=== PATIENT | female | born 1980 | race Caucasian/White ===

== ENCOUNTER → 2018-01-11 | Outpatient (CLI) | payer OTHER ==
[~2018-01-11] MED LIST: ACET325 PO; AMIT25 PO; CALCA400CH PO; Fish Oil 10001000 MG PO; GLUC500 PO; HYDR1TAB94 PO; IBUP400 PO; IBUP800 PO; OXYACE5T PO; POTASSIUM; Tylenol325 MG PO; Verotin-Gr Cap1 EACH PO; ZINC15 PO
== END | disposition home or self-care (01) ==
LOC: LAB 12:58 → LAB SHORT 12:58
PROVIDERS: Obstetrics & Gynecology
DX: Z01.419 Encounter for gynecological examination (general) (routine) without abnormal findings (principal)
CPT/HCPCS: 87624; G0123

== ENCOUNTER 2020-08-03 15:51 | Emergency (ER) | payer OTHER ==
[~2020-08-03] VITALS: Ht 170.2 cm; Wt 81.7 kg
[2020-08-03] MEDS ORDERED: LIDO700A20 TOP (20:08)
[2020-08-03] MEDS ORDERED: CYCL10 PO (20:08)
[2020-08-03] MEDS ORDERED: DEXA4 PO (20:08)
[2020-08-03] MEDS ORDERED: IBUP600 PO (20:08)
[2020-12-11] MEDS ORDERED: Percocet 5-3251 EACH PO (13:28)
== END 2020-08-03 20:45 | disposition home or self-care (01) ==
LOC: ER 15:51
DX: M54.13 Radiculopathy, cervicothoracic region (principal); G89.29 Other chronic pain; Z79.899 Other long term (current) drug therapy; Z88.2 Allergy status to sulfonamides; Z87.891 Personal history of nicotine dependence
CPT/HCPCS: 72040; 73030; 99283-25; A9270; J1100; J1885

== ENCOUNTER 2020-08-05 14:02 | Emergency (ER) | payer OTHER ==
[~2020-08-05] VITALS: Ht 170.2 cm; Wt 81.7 kg
[~2020-08-05 14:02] MED LIST changes: +CYCL10 PO; +DEXA4 PO; +IBUP600 PO; +LIDO700A20 TOP
[2020-08-05] MEDS ORDERED: OXYACE7.5T PO (16:37)
[2020-08-05] MEDS ORDERED: IBUP800 PO (16:37)
[2020-08-05] MEDS ORDERED: Robaxin-750750 MG PO (16:37)
[2020-12-11] MEDS ORDERED: Percocet 5-3251 EACH PO (13:28)
== END 2020-08-05 16:52 | disposition home or self-care (01) ==
LOC: ER 14:02
DX: M54.12 Radiculopathy, cervical region (principal); Z87.891 Personal history of nicotine dependence; Z79.899 Other long term (current) drug therapy; Z88.2 Allergy status to sulfonamides
CPT/HCPCS: 96372-59; 96374; 99283-25; A9270; J1170; J1885

== ENCOUNTER 2020-08-09 19:27 | Observation (INO) | payer OTHER ==
[~2020-08-09] VITALS: Ht 170.2 cm; Wt 83.4 kg
[~2020-08-09 19:27] MED LIST changes: +OXYACE7.5T PO; +Robaxin-750750 MG PO
[2020-08-09 20:02] LABS: BASOPHILS ABSOLUTE AUTO 0.04 K/mm3 (0.00-0.23); BASOPHILS PERCENT AUTO 0 % (0-2); EOSINOPHILS PERCENT AUTO 0 % (0-6); Hematocrit 43.8 % (33.0-51.0); Hemoglobin 15.9 g/dL (11.5-16.0); IMMATURE GRAN PERCENT AUTO 1 % (0-1); LYMPHOCYTES ABSOLUTE AUTO 1.32 K/mm3 (0.84-5.20); LYMPHOCYTES PERCENT AUTO 8 % (21-46); MONOCYTES ABSOLUTE AUTO 0.32 K/mm3 (0.16-1.47); MONOCYTES PERCENT AUTO 2 % (4-13); Mean Corpuscular HGB 34.1 pg (26.0-34.0); Mean Corpuscular HGB Conc 36.3 g/dL (31.5-36.5); Mean Corpuscular Volume 94 fL (80-100); Mean Platelet Volume 10.8 fL (9.1-12.4); NEUTROPHILS ABSOLUTE AUTO 13.86 K/mm3 (1.96-9.15); NEUTROPHILS PERCENT AUTO 88 % (41-73); Platelet Count 257 K/mm3 (150-400); RDW Coefficient Variation 12.1 % (11.7-14.2); RDW Standard Deviation 41.3 fL (35.1-46.3); Red Blood Cell Count 4.66 M/mm3 (3.80-5.20); White Blood Cell Count 15.74 K/mm3 (4.00-11.30)
[2020-08-09] MEDS ORDERED: PREG75 PO (20:07)
[2020-08-09] MEDS ORDERED: DEXA6 PO (20:08)
[2020-08-09 20:20] LABS: Alanine Aminotransfer (ALT/SGP 47 U/L (12-78); Albumin, Blood 4.3 g/dL (3.4-5.0); Alk Phos 70 U/L (50-136); Anion Gap 9 mmol/L (6-16); Aspartate Aminotrans (AST/SGOT 22 U/L (12-37); Bilirubin, Total 0.8 mg/dL (0.1-1.0); Blood Urea Nitrogen 13 mg/dL (8-24); Bun/Creatinine Ratio 20.1 (12.0-20.0); CO2, Blood 21 mmol/L (21-32); Calcium, Blood 9.6 mg/dL (8.5-10.1); Chloride, Blood 104 mmol/L (98-108); Creatinine, Blood 0.65 mg/dL (0.40-1.00); Globulin, Blood 4.1 g/dL (2.2-4.0); Glomerular Filtration Rate >60 (60-); Glucose, Blood 150 mg/dL (70-99); Potassium, Blood 3.7 mmol/L (3.5-5.5); Sodium, Blood 134 mmol/L (136-145); Total Protein, Blood 8.4 g/dL (6.4-8.2); Troponin I <0.015 ng/mL (0.000-0.040)
[2020-08-10] MEDS ORDERED: LIDO700A20 TOP (16:28)
--- NOTE | 2020-08-10 19:00 | NUR ---
SHIFT SUMMARY PT ARRIVED AT 1450, GOT PRN IV AND PO PAIN MEDICATIONS. INDEP IN ROOM. OFF TO MRI. CONTINENT IN BR, MOTHER AT BEDSIDE. HEAT AND ICE PACKS IN ROOM AVAILABLE FOR PT CALL LIGHT IN REACH, REPORT GIVEN TO NIGHT NURSE
--- NOTE | 2020-08-10 20:16 | NUR ---
CALL TO HOSPITALIST / LYRICA FREQUENCY INCREASED LYRICA SCHEDULED FOR ONCE DAILY. PT STATES SHE TAKES THIS BID. SPOKE W/ DR. KNUTSON AND INCREASED FREQUENCY TO BID.
--- NOTE | 2020-08-11 05:56 | NUR ---
SHIFT SUMMARY: BP ELEVATED AT HS- IMPROVED THIS AM. AFEB. AAOX4. PT STATES SHE WAS ABLE TO SLEEP WELL TONIGHT. USING HEAT FOR PAIN MANAGEMENT IN ADDITION TO PRN DILAUDID, PERCOCET, AND ROBAXIN. PT STATES PAIN IS PRESENT BUT TOLERABLE. L WEAVER HAND WEAK DUE TO INCREASED PAIN W/ ATTEMPT TO SQUEEZE. INTERMITTENT L HAND NUMBNESS. ALL MOVEMENTS ARE SLOW AND PT KEEPS NECK AND SHOULDER IMMOBILE SHE CAN TO AVOID PAIN. NO ACUTE CHANGES OVERNIGHT.
[2020-08-11] MEDS ORDERED: IBUP600 PO (11:42)
[2020-08-11] MEDS ORDERED: Robaxin750 MG PO (11:43)
[2020-08-11] MEDS ORDERED: PERCOCET 10-321 EAC5 PO (11:44)
[2020-08-11] MEDS ORDERED: MIRALAX17 GM PO (11:44)
[2020-08-11] MEDS ORDERED: ONDA4ODT MM (11:45)
--- NOTE | 2020-08-11 14:29 | NUR ---
DISCHARGE SUMMARY PT A/O X4 AND IND IN THE ROOM. PT RECEIVING PAIN MANAGEMENT INTERVENTIONS FOR BULGING DISKS IN THE BACK AND NECK. PT SEVERE NECK AND SHOULDER PAIN AND IS GOING TO FOLLOW UP OUTPATIENT FOR THIS. MEDICATED FOR PAIN X2 THIS SHIFT. PT REPORTED NECK PRESSURE/SPASM WHEN RECEIVING DILAUDID. GIVEN A HARD SCRIPT FOR PERCOCET. IV DC WNL. PT DRIVEN MAURILIO BY HER MOTHER. PERSONAL MEDICATIONS RETURNED TO PATIENT.
[2020-12-11] MEDS ORDERED: Percocet 5-3251 EACH PO (13:28)
== END 2020-08-11 13:48 | disposition home or self-care (01) ==
LOC: ER 19:27 → ERHOLD 23:55 → MEDS 08-10 14:50
PROVIDERS: Emergency Medicine; ADMIT Internal Medicine
DX: M50.122 Cervical disc disorder at C5-C6 level with radiculopathy (principal); M25.78 Osteophyte, vertebrae; M47.23 Other spondylosis with radiculopathy, cervicothoracic region; R00.0 Tachycardia, unspecified; Z87.891 Personal history of nicotine dependence; Z88.2 Allergy status to sulfonamides
CPT/HCPCS: 36415; 72141; 80053; 84484; 85025; 93005; 93010; 96374; 96375; 96376; 99285-25; A9270; G0008; G0378; J1170; J1885; J2405; Q2038

== ENCOUNTER 2020-10-01 08:38 | Day surgery (SDC) | payer OTHER ==
[~2020-10-01] VITALS: Ht 170.2 cm; Wt 81.8 kg
[~2020-10-01 08:38] MED LIST changes: +DEXA6 PO; +MIRALAX17 GM PO; +ONDA4ODT MM; +PERCOCET 10-321 EAC5 PO; +PREG75 PO; +Robaxin750 MG PO
--- NOTE | 2020-10-01 09:37 | NUR ---
Ambulatory in Day Surgery History, Chart, Medications and Allergies reviewed before start of procedure. Lungs clear T/O to Auscultation. Patient confirms NPO status and agrees with scheduled surgery. Pre-Op teaching done. Pt verbalizes understanding. Patient States Post-Procedure ride home has been arranged.
--- NOTE | 2020-10-01 19:27 | NUR ---
assisted pt to use bedpan stated pain is better repositioned in bed additional blankets placed pt shivering pt having some difficulty swallowing cl has easier time with ice chips
--- NOTE | 2020-10-02 05:59 | NUR ---
SHIFT SUMMARY LYING IN HIGH FOWLERS WITH EYES CLOSED. NO SIGNIFICANT CHANGES NOTED THIS SHIFT. PT AMBULATED TO BATHROOM WITH 1 PERSON ASSIST USING FWW/GB SEVERAL TIMES THIS SHIFT. SAT UP IN CHAIR AND GOT BACK IN BED. C-COLLAR IN PLACE. THROAT PAIN MANAGED WITH CEPACOL LOZENGES AND PRN PAIN MEDS. NO FURTHER SWALLOWING ISSUES REPORTED AFTER USING LOZENGES. SCD'S IN PLACE. DENIES PAIN, DISCOMFORT, OR FURTHER NEEDS AT THIS TIME. SAFETY MEASURES IN PLACE. WILL CONTINUE TO MONITOR AND GIVE HAND OFF TO ONCOMING SHIFT USING SBAR DURING BEDSIDE REPORT.
--- NOTE | 2020-10-02 16:58 | NUR ---
DISCHARGE PT PROVIDED WITH WRITTEN AND VERBAL DISCHARGE INSTRUCTION, SHE REPORTED UNDERSTANDING. PT CLEARED THERAPY AND VSS PRIOR TO DISCHARGE. PT ESCORTED OUT AT 1640 BY MEGHAN PUENTE. PAIN MANAGED AT TIME OF DISCHARGE.
[2020-12-11] MEDS ORDERED: Percocet 5-3251 EACH PO (13:28)
== END 2020-10-02 16:42 | disposition home or self-care (01) ==
LOC: ORSCMMR 08:38 → SURS 08:38 → ORSCMMR 10-02 16:42
PROVIDERS: Orthopaedic Surgery
PROC: 0RB30ZZ Excision of Cervical Vertebral Disc, Open Approach (ICD-10-PCS; principal; 2020-10-01 10:00)
PROC: 0RG10K0 Fusion of Cervical Vertebral Joint with Nonautologous Tissue Substitute, Anterior Approach, Anterior Column, Open Approach (ICD-10-PCS; principal; 2020-10-01 10:00)
DX: M48.02 Spinal stenosis, cervical region (principal); M54.12 Radiculopathy, cervical region; J45.909 Unspecified asthma, uncomplicated; Z87.891 Personal history of nicotine dependence; Z79.899 Other long term (current) drug therapy
CPT/HCPCS: 88304; 97116; 97162; 97165; 97530; 97535; A9270; C1713; J0171; J0330; J0690; J1100; J1170; J2250; J2405; J2704; J2765; J3010; J3370; J7120

== ENCOUNTER 2020-12-18 11:04 | Day surgery (SDC) | payer OTHER ==
[~2020-12-18] VITALS: Ht 170.2 cm; Wt 77.3 kg
[~2020-12-18 11:04] MED LIST changes: +Percocet 5-3251 EACH PO
[2020-12-18] MEDS ORDERED: TOCO1000 PO (11:33)
[2020-12-18] MEDS ORDERED: THERA-D2000 UNIT PO (11:33)
[2020-12-18] MEDS ORDERED: NAPR220 PO (11:34)
[2020-12-18] MEDS ORDERED: IBUP800 PO (11:34)
--- NOTE | 2020-12-18 12:32 | NUR ---
12/18/20 1232 Daisy Garrido EPI 0.15MG MIXED INTO BUPIVACAINE 0.5% 30ML TO CONSTITUTE BUPIVACAINE 0.5% W/EPI 1:200,000
--- NOTE | 2020-12-18 14:28 | NUR ---
12/18/20 1428 BRANDON PRATER PROVIDED MADONA AND PAD
== END 2020-12-18 14:12 | disposition home or self-care (01) ==
LOC: ORSCSDS 11:04
PROVIDERS: Obstetrics & Gynecology
PROC: 0UT74ZZ Resection of Bilateral Fallopian Tubes, Percutaneous Endoscopic Approach (ICD-10-PCS; principal; 2020-12-18 12:00)
PROC: 0UPD7HZ Removal of Contraceptive Device from Uterus and Cervix, Via Natural or Artificial Opening (ICD-10-PCS; principal; 2020-12-18 12:00)
DX: Z30.2 Encounter for sterilization (principal); Z30.432 Encounter for removal of intrauterine contraceptive device; Z87.891 Personal history of nicotine dependence
CPT/HCPCS: 88302; A9270; J0171; J1100; J2250; J2405; J2704; J3010; J7120

== ENCOUNTER 2022-05-24 06:05 | Emergency (ER) | payer OTHER ==
[~2022-05-24 06:05] MED LIST changes: +NAPR220 PO; +THERA-D2000 UNIT PO; +TOCO1000 PO
[2022-05-24] MEDS ORDERED: Robaxin750 MG PO (08:31)
[2022-05-24] MEDS ORDERED: IBUP600 PO (08:31)
[2022-05-24] MEDS ORDERED: ACET500 PO (08:31)
[2022-05-24] MEDS ORDERED: OMEP20ER PO (08:31)
== END 2022-05-24 09:12 | disposition home or self-care (01) ==
DX: M54.2 Cervicalgia (principal); M25.512 Pain in left shoulder; G89.29 Other chronic pain; Z98.1 Arthrodesis status; Z88.2 Allergy status to sulfonamides; Z88.8 Allergy status to other drugs, medicaments and biological substances

== ENCOUNTER 2022-05-26 09:58 | Emergency (ER) | payer OTHER ==
[~2022-05-26] VITALS: Ht 170.2 cm; Wt 74.8 kg
[~2022-05-26 09:58] MED LIST changes: +ACET500 PO; +OMEP20ER PO
[2022-05-26 11:02] LABS: BASOPHILS ABSOLUTE AUTO 0.06 K/mm3 (0.00-0.23); BASOPHILS PERCENT AUTO 1 % (0-2); EOSINOPHILS ABSOLUTE AUTO 0.17 K/mm3 (0.00-0.68); EOSINOPHILS PERCENT AUTO 2 % (0-6); Hemoglobin 15.6 g/dL (11.5-16.0); IMMATURE GRAN ABSOLUTE AUTO 0.06 K/mm3 (0.00-0.10); IMMATURE GRAN PERCENT AUTO 1 % (0-1); LYMPHOCYTES ABSOLUTE AUTO 2.23 K/mm3 (0.84-5.20); LYMPHOCYTES PERCENT AUTO 20 % (21-46); MONOCYTES PERCENT AUTO 4 % (4-13); Mean Corpuscular HGB 32.8 pg (26.0-34.0); Mean Corpuscular HGB Conc 34.7 g/dL (31.5-36.5); Mean Corpuscular Volume 95 fL (80-100); Mean Platelet Volume 10.5 fL (9.1-12.4); NEUTROPHILS ABSOLUTE AUTO 8.39 K/mm3 (1.96-9.15); NEUTROPHILS PERCENT AUTO 74 % (41-73); Platelet Count 271 K/mm3 (150-400); RDW Coefficient Variation 12.4 % (11.7-14.2); RDW Standard Deviation 42.5 fL (35.1-46.3); Red Blood Cell Count 4.75 M/mm3 (3.80-5.20); White Blood Cell Count 11.31 K/mm3 (4.00-11.30)
[2022-05-26 11:19] LABS: Albumin, Blood 3.8 g/dL (3.4-5.0); Albumin/Globulin Ratio 0.8 (0.8-1.8); Bilirubin, Total 0.4 mg/dL (0.1-1.0); Bun/Creatinine Ratio 14.1 (12.0-20.0); Calcium, Blood 9.5 mg/dL (8.5-10.1); Creatinine, Blood 0.71 mg/dL (0.40-1.00); Globulin, Blood 4.7 g/dL (2.2-4.0); Potassium, Blood 4.7 mmol/L (3.5-5.5); Total Protein, Blood 8.5 g/dL (6.4-8.2)
[2022-05-26 11:24] LABS: Influenza A, PCR NEGATIVE (NEGATIVE); Influenza B, PCR NEGATIVE (NEGATIVE); Resp Syncytial Virus, PCR NEGATIVE (NEGATIVE); SARS-Cov-2 (COVID-19) PCR, MMC NEGATIVE (NEGATIVE)
[2022-05-26 14:03] LABS: Magnesium, Blood 2.2 mg/dL (1.6-2.4)
[2022-05-26 14:04] LABS: Alanine Aminotransfer (ALT/SGP 131 U/L (12-78); Albumin, Blood 3.9 g/dL (3.4-5.0); Albumin/Globulin Ratio 0.9 (0.8-1.8); Alk Phos 101 U/L (50-136); Aspartate Aminotrans (AST/SGOT 60 U/L (12-37); Bilirubin, Direct <0.1 mg/dL (0.0-0.3); Bilirubin, Indirect Unable to Calculate mg/dL (0.1-0.7); Bilirubin, Total 0.5 mg/dL (0.1-1.0); Globulin, Blood 4.4 g/dL (2.2-4.0); Total Protein, Blood 8.3 g/dL (6.4-8.2)
== END 2022-05-26 16:00 | disposition home or self-care (01) ==
LOC: ER 09:58
PROVIDERS: Physician Assistant; Student in an Organized Health Care Education/Training Program
DX: R07.9 Chest pain, unspecified (principal); M54.12 Radiculopathy, cervical region; R06.02 Shortness of breath; R60.0 Localized edema; M54.9 Dorsalgia, unspecified; R20.2 Paresthesia of skin; R51.9 Headache, unspecified; Z20.822 Contact with and (suspected) exposure to COVID-19; Z88.2 Allergy status to sulfonamides; Z88.8 Allergy status to other drugs, medicaments and biological substances; Z79.899 Other long term (current) drug therapy; Z98.1 Arthrodesis status
CPT/HCPCS: 0241U; 71046; 71260; 80053; 80076; 82607; 82746; 83690; 83735; 85025; 93005; 93010; J1790; J1885; J2405; J7030; Q9967

== ENCOUNTER 2022-10-18 09:03 | Emergency (ER) | payer OTHER ==
[~2022-10-18] VITALS: Ht 172.7 cm; Wt 79.4 kg
[2022-10-18] MEDS ORDERED: NARCAN4 M1 (09:27)
[2022-10-18 10:15] VITALS: BP 116/86
== END 2022-10-18 10:31 | disposition home or self-care (01) ==
LOC: ER 09:03
DX: T40.411A Poisoning by fentanyl or fentanyl analogs, accidental (unintentional), initial encounter (principal); Z87.891 Personal history of nicotine dependence
CPT/HCPCS: 93005; 93010; 99284-25

== ENCOUNTER 2023-05-26 01:49 | Emergency (ER) | payer OTHER ==
[~2023-05-26] VITALS: Ht 172.7 cm; Wt 77.1 kg
[~2023-05-26 01:49] MED LIST changes: +NARCAN4 M1
[2023-05-26 03:36] LABS: BASOPHILS ABSOLUTE AUTO 0.06 K/mm3 (0.00-0.23); BASOPHILS PERCENT AUTO 1 % (0-2); EOSINOPHILS ABSOLUTE AUTO 0.12 K/mm3 (0.00-0.68); EOSINOPHILS PERCENT AUTO 1 % (0-6); Hematocrit 40.8 % (33.0-51.0); Hemoglobin 14.2 g/dL (11.5-16.0); IMMATURE GRAN ABSOLUTE AUTO 0.03 K/mm3 (0.00-0.10); IMMATURE GRAN PERCENT AUTO 0 % (0-1); LYMPHOCYTES ABSOLUTE AUTO 2.21 K/mm3 (0.84-5.20); LYMPHOCYTES PERCENT AUTO 18 % (21-46); MONOCYTES ABSOLUTE AUTO 0.69 K/mm3 (0.16-1.47); MONOCYTES PERCENT AUTO 6 % (4-13); Mean Corpuscular HGB 33.3 pg (26.0-34.0); Mean Corpuscular HGB Conc 34.8 g/dL (31.5-36.5); Mean Corpuscular Volume 96 fL (80-100); Mean Platelet Volume 10.8 fL (9.1-12.4); NEUTROPHILS ABSOLUTE AUTO 9.55 K/mm3 (1.96-9.15); NEUTROPHILS PERCENT AUTO 75 % (41-73); Platelet Count 233 K/mm3 (150-400); RDW Coefficient Variation 12.2 % (11.7-14.2); RDW Standard Deviation 42.6 fL (35.1-46.3); Red Blood Cell Count 4.27 M/mm3 (3.80-5.20); White Blood Cell Count 12.66 K/mm3 (4.00-11.30)
[2023-05-26 04:10] LABS: Albumin, Blood 3.9 g/dL (3.4-5.0); Albumin/Globulin Ratio 1.1 (0.8-1.8); Bilirubin, Total 0.6 mg/dL (0.1-1.0); Bun/Creatinine Ratio 13.6 (12.0-20.0); Calcium, Blood 8.9 mg/dL (8.5-10.1); Creatinine, Blood 0.66 mg/dL (0.40-1.00); Globulin, Blood 3.7 g/dL (2.2-4.0); Potassium, Blood 3.9 mmol/L (3.5-5.5); Total Protein, Blood 7.6 g/dL (6.4-8.2)
[2023-05-26] MEDS ORDERED: Cleocin HCl150 MG PO (04:39)
[2023-05-26] MEDS ORDERED: CEPH500 PO (04:39)
[2023-05-26 05:30] VITALS: BP 134/98
== END 2023-05-26 06:43 | disposition home or self-care (01) ==
LOC: ER 01:49
PROVIDERS: Emergency Medicine
DX: S61.206A Unspecified open wound of right little finger without damage to nail, initial encounter (principal); L03.011 Cellulitis of right finger; Z88.8 Allergy status to other drugs, medicaments and biological substances; Z88.2 Allergy status to sulfonamides; X58.XXXA Exposure to other specified factors, initial encounter
CPT/HCPCS: 73140; 80053; 83605; 85025; 90715; 96365; 96366; 96367; 96375; 99283-25; J1200; J2543; J3370; J7050